=== PATIENT | female | born 1975 | race Two or more races ===

== ENCOUNTER 2025-03-06 00:49 | Emergency (ER) | payer OTHER ==
[~2025-03-06] VITALS: Ht 165.1 cm; Wt 61.2 kg
[2025-03-06 01:29] VITALS: BP 120/83; O2SAT 100
[2025-03-06] MEDS ORDERED: KETOROLAC TROMETHAMINE 10 MG TABLET PO STA (03:32)
[2025-03-06 03:59] LABS: BASO % 0.3 % (0.1-1.2); EOS # 0.05 (0.04-0.54); EOS % 0.5 % (0.7-7.0); LYMPH # 2.92 (1.18-3.74); LYMPH % 31.9 % (19.3-53.1); MEAN PLATELET VOLUME 10.20 fl (9.4-12.4); MONO # 0.70 (0.24-0.82); MONO % 7.7 % (4.7-12.5); NEUT # 5.43 (1.56-6.13); NEUT % 59.4 % (34.0-71.1); RED CELL DISTRIBUTION WIDTH 12.0 % (11.6-14.4)
[2025-03-06 04:48] LABS: BUN CREA RATIO 24.0 (7.0-25.0); CREATININE SERUM 0.67 mg/dL (0.55-1.02); GFR 93.55; GLUCOSE FASTING 99.0 mg/dL (65-100); OSMOLALITY SERUM 281.0 MOSM/KG (275-295)
[2025-03-06 05:22] LABS: URINE APPEARANCE Clear; URINE BILIRRUBIN Negative (NEGATIVE); URINE BLOOD Negative; URINE COLOR Yellow; URINE GLUCOSE Negative (NEGATIVE); URINE KETONE Negative (NEGATIVE); URINE LEUKOCYTE Negative; URINE NITRATE Negative; URINE PROTEIN Negative (NEGATIVE); URINE UROBILINOGEN 0.2 E.U./dl
[2025-03-06 05:25] LABS: URINE BACTERIA 20.5 uL (0.0-1933)
[2025-03-06 05:48] LABS: URINE CAST 0.14 uL (0.0-1.40); URINE EPITHELIAL CELLS 0.2 uL (0.0-38.8); URINE RBC 0.1 uL (0.0-20.8); URINE WBC 0.4 uL (0.0-23.2)
[2025-03-06] MEDS ORDERED: KETO10TA2 PO (06:00)
== END 2025-03-06 06:08 ==
LOC: ER 00:50
PROVIDERS: General Practice
DX: R10.A1 Flank pain, right side (principal); R31.9 Hematuria, unspecified